=== PATIENT | male | born 1965 | race Caucasian/White ===

== ENCOUNTER 2019-06-09 13:06 | Day surgery (SDC) | payer BC ==
[~2019-06-09] VITALS: Ht 180.3 cm; Wt 92.0 kg
[~2019-06-09 13:06] MED LIST: Lexapro 10 mg T10 MG PO; PARO10 PO; PRED20 PO; SULI200 PO; VALA500 PO
[2019-06-09] MEDS ORDERED: Prinivil10 MG (13:45)
[2019-06-09] MEDS ORDERED: GLUC500 (13:45)
[2019-06-09] MEDS ORDERED: ATOR20 (13:45)
[2019-06-09] MEDS ORDERED: JARDIANCE10 MG (13:46)
[2019-06-09] MEDS ORDERED: CELE100 (13:46)
== END 2019-06-09 15:30 | disposition home or self-care (01) ==
LOC: ORSCSDS 13:06
PROVIDERS: Surgery
PROC: 0DJD8ZZ Inspection of Lower Intestinal Tract, Via Natural or Artificial Opening Endoscopic (ICD-10-PCS; principal; 2019-06-09 15:00)
DX: Z12.11 Encounter for screening for malignant neoplasm of colon (principal); Z86.19 Personal history of other infectious and parasitic diseases; E11.9 Type 2 diabetes mellitus without complications; I10 Essential (primary) hypertension; E78.5 Hyperlipidemia, unspecified; G47.30 Sleep apnea, unspecified; Z87.891 Personal history of nicotine dependence; Z79.84 Long term (current) use of oral hypoglycemic drugs; Z79.899 Other long term (current) drug therapy
CPT/HCPCS: 82947; J2704; J7120